=== PATIENT | female | born 1975 | race Caucasian/White ===

== ENCOUNTER 2016-12-08 02:59 | Emergency (ER) | payer OTHER ==
[~2016-12-08] VITALS: Ht 175.3 cm; Wt 72.7 kg
[2016-12-08 03:22] VITALS: BP 137/94; PULSE 94; RESP 18; O2SAT 100
[2016-12-08] MEDS ORDERED: 0.9% Sodium Chloride 1,000 ML IV ONE (03:51)
[2016-12-08] MEDS ORDERED: Ondansetron 2 mg/mL 2 mL Inj IVPUSH PRN (03:55)
[2016-12-08] MEDS ORDERED: ProchlorPERazine 5 mg/mL 2 mL Inj IVPUSH ONE (03:55)
--- NOTE | 2016-12-08 04:02 | ED.REPORT ---
HPI-Headache Date of Service December 08, 2016 ED Provider: Joel Fish MD A 41 year old female with a history of migraines presents to the ED with a migraine headache onset yesterday morning. The headache is similar to previous migraines, although it began more suddenly. Associated symptoms include nausea and photophobia. The patient denies vomiting or other symptoms. Nursing Notes Stated Complaint: SEVERE MIGRAINE Chief Complaint: Headache Nursing Notes Reviewed: Yes Allergies: Coded Allergies: No Known Allergies (Unverified , 12/08/16) General Time Seen by MD: 03:51 Chief Complaint Migraine headache Hx Obtained From: Patient Arrived By: Walk-in Sudden in Onset?: No Onset Occurred: Yesterday (Morning) Symptom Duration: Since onset Location: : Generalized Quality: Painful Severity: Current: Moderate Severity: Maximum: Moderate Pertinent Negative: Relieved by nothing Related History: Reports: Headache, migraine hx Recent Healthcare: No recent doctor visit Similar Sx Previous: Yes Past Medical History Past Medical History Migraines Past Surgical History None reported Smoking History Unknown if Ever Smoker Ambulatory Status Independent Review of Systems Constitutional: Denies: Fever Eyes: Reports: Photophobia GI: Reports: Nausea, Denies: Diarrhea, Vomiting Neurologic: Reports: Headache Complete sys rev & neg: except as marked. Respiratory: Denies: Non-productive cough, Shortness of breath Physical Exam Initial Vital Signs Vital Signs (First) Date Time Temp Pulse Resp B/P Pulse Ox O2 Delivery O2 Flow Rate FiO2 12/08/16 03:22 37.3 94 18 137/94 100 Room Air Initial VS: Reviewed, Vital signs normal, Vital signs abnormal ENT: Conjunctiva normal, No scleral icterus Respiratory: No respiratory distress Skin: Warm, Dry Psychiatric: Mood/affect normal, Behavior normal General/Constitutional: Awake, Alert Behavior: Positive: Tearful Head / Eyes: Atraumatic, Normocephalic Pupils: Positive: Photophobia L, Photophobia R Neck: Supple, Full range of motion Neurologic: Oriented X3, Speech NL Interpretation & Diagnostics Lab Results Interpretation Test 12/08/16 03:50 Hold Purple Top Tube Received (Received) Hold Blue Top Tube Received (Received) Hold [place] Top Tube Received (Received) Re-Eval/Medical Decision Med Decision/Clinical Course 5-year-old female with a typical migraine for her, maybe a little more worse than her usual. She has no bothersome signs or symptoms. She was treated with IV normal saline, IV diphenhydramine, IV Haldol, IV every 4 ketorolac, and IV ondansetron and IV Compazine. Re-Evaluation/Progress : Time of Eval: 06:30 )( Patient Status: Condition improved Re-Evaluation/Progress Note: Patient's pain has improved. Discussed with patient physical exam findings, diagnosis, and plan for discharge after more pain management. Follow-up and return to the ER instructions given. Patient agrees with plan for care and all questions were addressed. Counseled Regarding: Diagnosis, Need for follow-up, When/why to return to ED Discharge & Departure Impression: Primary Impression: Migraine Migraine type: without aura Status migrainosus presence: without status migrainosus Intractability: intractable Qualified Code: G43.019 - Migraine without aura, intractable, without status migrainosus Disposition: Home Discharge Condition All VS Reviewed: Yes Condition: Improved Patient Instructions: Migraine Headache (ED) Additional Instructions: You received IV normal saline, and diphenhydramine, Haldol, dexamethasone, ketorolac, ondansetron, and Compazine. Home to sleep. Follow-up with your primary doctor or return to emergency room if you have significant return of headache. Referrals: Inocencia Funk MD (PCP) Scribe Attestation Portions of this note were transcribed by Niecy Moffett. I, Dr. Fish, personally performed the history, physical exam, and medical decision-making; I reviewed and confirmed the accuracy of the information in the transcribed note. Signed by: Jw Rivero, 12/08/2016, 06:50 copies to: Inocencia Funk MD, Howard L MD December 08, 2016 04:02 NIECY MOFFETT December 08, 2016 04:30
[2016-12-08] MEDS ORDERED: Dexamethasone 10 mg/mL Inj IVPUSH ONE (05:45)
[2016-12-08] MEDS ORDERED: Haloperidol 5 mg/mL Inj IVPUSH ONE (05:45)
[2016-12-08 06:39] VITALS: BP 132/88; PULSE 88; RESP 16; O2SAT 100
[2016-12-08 07:30] VITALS: BP 116/69; PULSE 79; RESP 16; O2SAT 93
== END 2016-12-08 07:31 | disposition home or self-care (01) ==
LOC: SED 02:59
DX: G43.019 Migraine without aura, intractable, without status migrainosus (principal)
CPT/HCPCS: 96361; 96374; 96375; 96376; 99284; J0780; J1100; J1200; J1630; J1885; J2405; J7030